=== PATIENT | male | born 1995 | race African-American/Black ===

== ENCOUNTER 2024-02-28 07:38 | Outpatient (CLI) | payer OTHER ==
--- NOTE | 2024-02-28 09:03 | XRAY Report ---
PROCEDURE: Lumbar Spine 2-3V INDICATIONS: LUMBAGO WITH SCIATICA, RIGHT SIDE TECHNIQUE: 3 views of the lumbar spine were acquired. COMPARISON: None. FINDINGS: Bones: 5 [id number] vertebrae are present. There is normal bony alignment. No vertebral body compression fractures. Minimal disc height loss and facet arthropathy at L4-5 and L5-S1 as well as os seous neural foraminal narrowing. No suspicious bony lesions. Soft tissues: Overlying bowel gas pattern is normal. No suspicious soft tissue calcifications. IMPRESSION: 1.No acute osseous abnormality. 2.Minimal degenerative changes at L4-5 and L5-S1. Reviewed by: Suhas Dan MD on 02/28/2024 9:02 AM PDT Approved by: Suhas Dan MD on 02/28/2024 9:02 AM PDT Station ID: [id number]
== END 2024-02-28 07:39 | disposition home or self-care (01) ==
LOC: DI.N 07:38
PROVIDERS: ATTEND Physician Assistant Medical
DX: M54.41 Lumbago with sciatica, right side (principal); M47.816 Spondylosis without myelopathy or radiculopathy, lumbar region; M47.817 Spondylosis without myelopathy or radiculopathy, lumbosacral region